=== PATIENT | female | born 1950 | race Two or more races ===

== ENCOUNTER 2023-05-31 06:24 | Emergency (ER) | payer MEDICARE ==
[~2023-05-31] VITALS: Ht 152.4 cm; Wt 84.8 kg
[2023-05-31 07:36] VITALS: BP 148/87
[2023-05-31] MEDS ORDERED: ACETAMINOPHEN 500 MG TAB PO ONE (08:00)
[2023-05-31] MEDS ORDERED: IBUP-1456 PO (08:23)
[2023-05-31] MEDS ORDERED: PRED20TA2 PO (08:23)
== END 2023-05-31 08:32 | disposition home or self-care (01) ==
LOC: ER 06:24
DX: M50.30 Other cervical disc degeneration, unspecified cervical region (principal); M54.12 Radiculopathy, cervical region; R51.9 Headache, unspecified; I10 Essential (primary) hypertension; W18.39XA Other fall on same level, initial encounter; Y93.01 Activity, walking, marching and hiking; Y92.89 Other specified places as the place of occurrence of the external cause; Y99.8 Other external cause status
CPT/HCPCS: 70450; 72125